=== PATIENT | female | born 2000 | race Two or more races ===

== ENCOUNTER 2020-08-28 08:52 | Outpatient (CLI) | payer OTHER | END 2020-08-28 08:53 | disposition home or self-care (01) | LOC: PPH VACUNA 08:52 | DX: Z23 Encounter for immunization (principal) ==

== ENCOUNTER 2020-09-25 08:00 | Outpatient (CLI) | payer OTHER | END 2020-09-25 08:30 | disposition home or self-care (01) | LOC: PPH VACUNA 08:00 | DX: Z23 Encounter for immunization (principal) ==